=== PATIENT | male | born 1980 | race Caucasian/White ===

== ENCOUNTER 2019-05-06 10:29 | Emergency (ER) | payer MEDICAID, SELFPAY ==
[2019-05-06 10:30] VITALS: BP 129/109; PULSE 98; RESP 18; TEMP 36.4; O2SAT 97; BMI 24.7
--- NOTE | 2019-05-06 10:43 | ED_ITS ---
HPI - Psych General: Chief Complaint: Psychiatric Symptoms Stated Complaint: anxiety Time Seen by Provider: 05/06/19 10:30 Source: patient Limitations: no limitations History of Present Illness: HPI Narrative: Patient is a 38-year-old male who presents to ED today with complaints of anxiety. Patient tells me that he does not have any specific anxiety triggers but states he feels like he often times is on the brink of a panic attack. He tells me feels like I want to crawl out of my own skin . Patient states he has seen his PCP for his anxiety previously and was placed on Zyprexa. According to patient he has no diagnoses of bipolar, pepe, schizophrenia. Patient feels like the Zyprexa is helping mildly but still does not feel like his anxiety is under control. He admittedly has used methamphetamines recently as well as smoking marijuana almost daily. Patient does not complain of hallucinations. He is not suicidal or homicidal. MD complaint: other (anxiety ) Onset (ago): month(s) Duration: intermittent History of same: Yes Relieving factors: none Exacerbating factors: none Context: recent drug abuse Associated symptoms: Deny auditory hallucinations, visual hallucinations, depression, homicidal ideation or suicidal ideation Review of Systems Const: Denies: fever or chills Eyes: Denies: change in vision or blurry vision Card: Denies: chest pain, palpitations, lightheadedness or syncope Resp: Denies: shortness of breath GI: Denies: abdominal pain, nausea, vomiting or diarrhea Skin/Breast: Denies: rash Neuro: Denies: headache Psych: Reports: anxiety and panic attacks; Denies: depression, loss of interest, visual hallucinations, auditory hallucinations, suicidal ideation or homicidal ideation [facility] ED PFSH: Social History Smoking and tobacco status: current every day smoker Physical Exam Const: COMMON NORMALS: no apparent distress, oriented x3, no limitations, alert and well nourished GENERAL APPEARANCE: cooperative ORIENTATION/CONSCIOUSNESS: Yes oriented to person, Yes oriented to place and Yes oriented to time HENMT: COMMON NORMALS: normocephalic and head/scalp atraumatic HEAD & SCALP: normocephalic and atraumatic Resp: COMMON NORMALS: normal respiratory effort and clear to auscultation bilaterally AUSCULTATION: clear to auscultation bilaterally Cardio: COMMON NORMALS: regular rate and regular rhythm RATE: regular rate RHYTHM: regular rhythm Neuro: SAMM COMA SCALE: document GCS findings [place] coma scale eye opening: Spontaneous [place] coma scale verbal response: Orientated Samm coma scale motor response: Obey commands Samm coma scale total score: 15 COMMON NORMALS: oriented x3, CN's II-XII intact bilaterally, moves all extremities, no focal motor deficits, no sensory deficits noted and gait normal SENSORIUM/ORIENTATION: Yes alert, Yes oriented to person, Yes oriented to place and Yes oriented to time Psych: COMMON NORMALS: mental status grossly normal, thought process normal, cooperative, affect normal, speech normal, activity/motor behavior normal, denies hallucinations, denies homicidal ideation and denies suicidal ideation ACTIVITY/MOTOR BEHAVIOR: Yes appropriate eye contact and Yes psychomotor agitation SPEECH: Yes normal speech THOUGHT PROCESS: normal thought process THOUGHT CONTENT: Yes normal thought content ATTENTION/CONCENTRATION: Yes attention grossly intact MEMORY/COGNITION: Yes memory grossly intact and Yes cognition grossly intact INSIGHT: insight good JUDGEMENT: judgment good MDM - Psych MDM Narrative: Medical decision making narrative: As patient does not have any previous diagnoses of schizophrenia or bipolar I feel there may be better medications to manage his anxiety. Recommend he discontinue the Zyprexa and I will start him on Zoloft. Recommend he go to [facility] for an intake screening exam. Patient does not meet inpatient criteria at this time. Return to ED precautions given if patient begins feeling suicidal or homicidal. Discharge Plan Discharge Patient Disposition: Home, Self-Care Clinical Impression: NGUYEN (generalized anxiety disorder), Polysubstance abuse Condition: Stable Prescriptions: New Zoloft 25 mg tablet 25 mg PO DAILY Qty: 60 RF: 0 Discharge Orders: Discharge Order (Routine); Ordered 05/06/19 Ordered By: Ioana Girard Activity Restrictions/Additional Instructions: STOP DOING DRUGS. You may go to [facility] during normal business hours for an intake screening exam so they may assist you with your anxiety. DISCONTINUE THE ZYPREXA. Coding Level of Care Code ED Lopper for Soraya Casey
[2019-05-06] MEDS: LORazepam 2 mg/mL INJ 1 mL 1 MG IM (10:50)
== END 2019-05-06 10:52 | disposition home or self-care (01) ==
LOC: ER 11:03
PROVIDERS: Emergency Provider Physician Assistant; PCP Nurse Practitioner Family
DX: F41.1 Generalized anxiety disorder (principal); F19.10 Other psychoactive substance abuse, uncomplicated; F17.200 Nicotine dependence, unspecified, uncomplicated; R40.2412 Glasgow coma scale score 13-15, at arrival to emergency department
CPT/HCPCS: 12345; 96372; 99284; J2060

== ENCOUNTER → 2021-08-23 10:33 | Outpatient (BNVA) | payer MEDICAID, SELFPAY | PROVIDERS: PCP Nurse Practitioner Family; Visit Provider Surgery | DX: R10.13 Epigastric pain (principal) | CPT/HCPCS: 99203 ==

== ENCOUNTER 2021-10-19 06:27 | Day surgery (SDC) | payer MEDICAID, SELFPAY ==
[2021-10-14 10:19] VITALS: BMI 26.9
[2021-10-19 06:44] VITALS: BP 144/98; PULSE 83; RESP 18; TEMP 36.5; O2SAT 98
[2021-10-19] MEDS: sodium chloride 0.9% 1,000 ML 30 ML IV (06:50)
--- NOTE | 2021-10-19 06:52 | ANES.PREANE2 ---
Pre-Anesthetic Assessment Height/Weight: Height 1.75 m Weight 82.554 kg Temp Pulse Resp BP Pulse Ox O2 Del Method 97.7 F 83 18 144/98 98 10/19/21 06:44 10/19/21 06:44 10/19/21 06:44 10/19/21 06:44 10/19/21 06:44 10/19/21 06:44 Operation Date: 10/19/21 07:30 Proposed Procedures p EGD 09771,R10.13(Not Applicable) - Jackson Mueller DO Familial anesthetic complications: None Was Beta Kole taken within 24 hours: N/A Was Clonidine taken within 24 hours: N/A Last intake: Intake Last Liquid Date 10/18/21 Last Liquid Time 23:45 Last Solid Date 10/18/21 Last Solid Time 23:45 Last Intake: 23:00 (09/17/2021) Social Alcohol (A few beers every couple of days. Drank 6 beers yesterday) and Tobacco One pack every 2-3 days pack(s) per day 10 pack years Marijuana use as well. Smoked marijuana last night Exam alert, oriented x 3, clear to auscultation bilaterally and regular rate & rhythm Airway Submandibular: within normal limits Cervical ROM: within normal limits Mallampati: Class II Dentition: chipped and other (7 teeth recently removed to perform dental work. Poor dentition) History/ROS No significant history except as noted and No significant complaints Pulmonary Sleep Apnea No CPAP. Has inhaler PRN CV/HEM None reported None reported Hepatic Hepatitis (History of Hep C) GI Gastroesophageal Reflux Disease Metabolic Thyroid Disease Musc/skel Sciatic nerve issues Neuropsych Anxiety and Depression Anesthetic Plan ASA status: 3 Anesthesia: Anesthesia Evaluation, General and MAC Risk of > 500 ml blood loss (7ml/kg in children): No Medications/Allergies Home Medications Medication Instructions Recorded Confirmed Last Taken Type buprenorphine 12 mg-naloxone 3 mg 1 film buccal ONCE 08/23/21 10/14/21 Unknown History sublingual film (Suboxone) buspirone 10 mg tablet 10 mg PO ONCE 08/23/21 10/14/21 Unknown History cetirizine 10 mg tablet (Zyrtec) 10 mg PO DAILY 08/23/21 10/14/21 Unknown History cholecalciferol (vitamin D3) 125 125 mcg PO DAILY 08/23/21 10/14/21 Unknown History mcg (5,000 unit) capsule omeprazole 40 mg capsule,delayed 40 mg PO ONCE 08/23/21 10/14/21 Unknown History release ondansetron HCl 4 mg tablet 4 mg PO Q8H 08/23/21 10/14/21 Unknown History quetiapine 200 mg tablet (Seroquel) 200 mg PO DAILY 08/23/21 10/14/21 Unknown History potassium chloride 20 mEq 20 meq PO DAILY 10/14/21 10/14/21 Unknown History tablet,extended release Allergies Allergy/AdvReac Type Severity Reaction Status Date / Time No Known Allergies Allergy Verified 08/23/21 10:35 Current Medications Generic Name Dose Route Start Last Admin Trade Name Freq PRN Reason Stop Dose Admin Sodium Chloride 1,000 mls @ 30 mls/hr 10/19/21 06:30 10/19/21 06:50 Sodium Chloride 0.9% IV 10/20/21 06:29 30 mls/hr .Q24H JENNI Administration PFSH Anesthesia Medical History Epigastric pain GERD (gastroesophageal reflux disease) Surgical History Hx of cholecystectomy Family History Mother Agent orange exposure Social History Smoking and tobacco status: current every day smoker (AND THC) Alcohol intake: former Data Anesthesia Cardiac Studies: No Data to Display
--- NOTE | 2021-10-19 06:59 | PM.HP ---
Providers/Chief Complaint Primary Care Provider: Joie AlexC Chief Complaint: Abdominal pain History of Present Illness Kiel Cabrera is a 41 year old male here for EGD Medications/Allergies Home Medications Medication Instructions Recorded Confirmed Last Taken Type buprenorphine 12 mg-naloxone 3 mg 1 film buccal DAILY 08/23/21 10/19/21 10/18/21 History sublingual film (Suboxone) buspirone 10 mg tablet 10 mg PO DAILY 08/23/21 10/19/21 10/18/21 History cetirizine 10 mg tablet (Zyrtec) 10 mg PO DAILY 08/23/21 10/14/21 10/18/21 History cholecalciferol (vitamin D3) 125 125 mcg PO DAILY 08/23/21 10/14/21 10/17/21 History mcg (5,000 unit) capsule omeprazole 40 mg capsule,delayed 40 mg PO DAILY 08/23/21 10/19/21 10/17/21 History release ondansetron HCl 4 mg tablet 4 mg PO Q8H 08/23/21 10/14/21 10/18/21 History quetiapine 200 mg tablet (Seroquel) 200 mg PO DAILY 08/23/21 10/14/21 10/18/21 History potassium chloride 20 mEq 20 meq PO DAILY 10/14/21 10/14/21 10/18/21 History tablet,extended release Allergies Allergy/AdvReac Type Severity Reaction Status Date / Time No Known Allergies Allergy Verified 08/23/21 10:35 PFSH Acute PFSH: Medical History (Updated 10/19/21 @ 07:00 by Jackson Mueller DO) Epigastric pain GERD (gastroesophageal reflux disease) Surgical History Hx of cholecystectomy Family History Mother Agent orange exposure Social History Smoking and tobacco status: current every day smoker (AND THC) Alcohol intake: former Vitals/I&O/Wt Last Vital Signs Temp 97.7 F 10/19/21 06:44 Pulse 83 10/19/21 06:44 Resp 18 10/19/21 06:44 BP 144/98 10/19/21 06:44 Pulse Ox 98 10/19/21 06:44 O2 Del Method 10/19/21 06:44 A&P Assessment and plan (1) Epigastric pain: Status: Acute Plan EGD Attestations Medical Necessity Statement*: Will go home will go home Coding Level of Care Code Acute Communications Attendant for Christinag Fwd Diagnoses Epigastric pain R10.13
[2021-10-19 07:45] VITALS: BP 112/86; PULSE 98; RESP 16; TEMP 36.6; O2SAT 92
[2021-10-19 07:58] VITALS: BP 126/85; PULSE 85; RESP 16; O2SAT 96
[2021-10-19 08:05] VITALS: BP 126/95; PULSE 77; RESP 16; O2SAT 94
[2021-10-19 08:10] VITALS: BP 124/89; PULSE 72; RESP 16; O2SAT 94
--- NOTE | 2021-10-20 09:06 | ANE.PACU2 ---
Inpatient post-anesthesia follow up: Airway intact: Yes Vital signs: Temperature 98 F Pulse Rate 72 Respiratory Rate 16 Blood Pressure 124/89 Pulse Oximetry 94 Oxygen Delivery Me thod Room Air Oxygen Flow Rate Fraction of Inspir ed Oxygen Hydration adequate: Yes Nausea and vomiting: No Pain level: 1 Mental status: Baseline
== END 2021-10-19 08:15 | disposition home or self-care (01) ==
PROVIDERS: PCP Nurse Practitioner Family; Visit Provider Surgery
PROC: 0DJ08ZZ Inspection of Upper Intestinal Tract, Via Natural or Artificial Opening Endoscopic (ICD-10-PCS; CPT 43235; principal; 2021-10-19 07:30)
DX: R10.13 Epigastric pain (principal); K21.00 Gastro-esophageal reflux disease with esophagitis, without bleeding; K29.50 Unspecified chronic gastritis without bleeding; B96.81 Helicobacter pylori [H. pylori] as the cause of diseases classified elsewhere; F17.200 Nicotine dependence, unspecified, uncomplicated
CPT/HCPCS: 43239; 88305; 88342; J2704; J7030